=== PATIENT | male | born 1950 | race Caucasian/White ===

== ENCOUNTER → 2022-08-28 | Outpatient (CLI) | payer MEDICARE, OTHER ==
--- NOTE | 2022-08-28 14:00 | US ---
EXAMINATION TYPE: US carotid duplex BILAT DATE OF EXAM: 08/28/2022 COMPARISON: NONE CLINICAL INDICATION: Male, 72 years old with history of I67.82 CVA; stoke behind rt eye TECHNIQUE: Carotid duplex ultrasound examination. Indirect Doppler criteria was utilized. FINDINGS: EXAM MEASUREMENTS: RIGHT: Peak Systolic Velocity (PSV) cm/sec ----- Right CCA: 88.1 ----- Right ICA: 70.6 ----- Right ECA: 82.3 ICA/CCA ratio: 0.8 RIGHT: End Diastole cm/sec ----- Right CCA: 19.8 ----- Right ICA: 15.4 ----- Right ECA: 0 LEFT: Peak Systolic Velocity (PSV) cm/sec ----- Left CCA: 80.8 ----- Left ICA: 73.5 ----- Left ECA: 97.7 ICA/CCA ratio: 0.9 LEFT: End Diastole cm/sec ----- Left CCA: 19.8 ----- Left ICA: 18.3 ----- Left ECA: 16.3 VERTEBRALS (direction of flow): Right Vertebral: Antegrade Left Vertebral: Antegrade Rhythm: Normal MASSAGE THERAPY INSTRUCTOR NOTES: No significant stenosis seen IMPRESSION: Less than 50% stenosis of the bilateral carotid bifurcations. Criteria for Assigning % of Stenosis / Diameter reduction (Estimation based on the indirect measurements of the internal carotid artery velocities (ICA PSV). 1. Normal (no stenosis)=ICA PSV < 125 cm/s: ratio < 2.0: ICA EDV<40 cm/s. 2. Less than 50% stenosis=ICA PSV < 125 cm/s: ratio < 2.0: ICA EDV<40 cm/s. 3. 50 to 69% stenosis=ICA PSV of 125 to 230 cm/s: ration 2.0 ? 4.0: ICA EDV 40-100 cm/s. 4. Greater than 70% stenosis to near occlusion= ICA PSV > 230 cm/s: ratio > 4.0: ICA EDV > 100 cm/s. 5. Near occlusion= ICA PSV velocities may be low or undetectable: variable ratio and ICA EDV. 6. Total occlusion=unable to detect flow.
== END | disposition home or self-care (01) ==
LOC: RADUSWWP 10:33
DX: I67.82 Cerebral ischemia (principal); I65.23 Occlusion and stenosis of bilateral carotid arteries; Z86.73 Personal history of transient ischemic attack (TIA), and cerebral infarction without residual deficits
CPT/HCPCS: 93880

== ENCOUNTER → 2024-08-24 | Outpatient (CLI) | payer MEDICARE, OTHER ==
[2024-08-24 14:15] LABS: African American GFR (CKD) >90 (>60 ml/min/1.73 sqM); Blood Urea Nitrogen 19 mg/dL (9-20); Non-African American GFR(CKD) 78 (>60 ml/min/1.73 sqM)
--- NOTE | 2024-08-24 16:47 | CT ---
EXAMINATION TYPE: CT angio abd aorta w/Runoff DATE OF EXAM: 08/24/2024 4:26 PM COMPARISON: None. CLINICAL INDICATION: Male, 74 years old with history of I72.4 ANEURYSM; PHH, ANEURYSM IN LT POPLITEAL AND POSSIBLY ABDOMEN PER PT TECHNIQUE: CT angio abd aorta w/Runoff CT noncontrast abdomen pelvis and bilateral lower extremity followed by CT angiogram abdomen and pelv is and bilateral lower extremities. Multiple thin slice sub-millimeter images were obtained before and after administration of contrast. 3-D reconstructed images and maximum intensity projection images were obtained on a separate works tation. CT angio abd aorta w/Runoff CT Contrast: Contrast used:200 ML mL of Isovue 370 without and with IV Contrast, Oral contrast used: None CT DLP: 6097.1 mGycm, Automated exposure control for dose reduction was used. FINDINGS: CTA Abdomen and pelvis: The abdominal aorta does not demonstrate aneurysmal dilatation. Atherosclero tic plaquing is identified within the abdominal aorta. The origins of the superior mesenteric artery , renal arteries, inferior mesenteric artery, and celiac axis are patent. The iliac vessels are norm al in morphology there are 2 left renal arteries and one right CTA Lower extremities: Right: The common femoral and superficial femoral arteries are patent. The popliteal artery is patent . Popliteal artery is dilated up to 24 mm with mural thrombus and extends up to 9.5 cm in length.. An terior and posterior tibial arteries as well as the peroneal artery are patent. The posterior tibial artery crosses the ankle anterior tibial artery is poorly visualized. There is delayed perfusion of t he right lower extremity compared to the left. Left: The common femoral and superficial femoral arteries are patent. The popliteal artery is patent. The popliteal artery is dilated up to 36 mm with mural thrombus and extends approximately 16 cm in l ength. Anterior and posterior tibial arteries as well as the peroneal artery are patent. Anterior and posterior tibial arteries cross the ankle. Diffuse soft tissue edema throughout the lower extremities left greater than right. Mild degeneration changes in the knees with osteophyte formation and joint space. LOWER CHEST: No evidence of focal consolidation, pneumothorax or pleural effusion. Small hiatal herni a. LIVER: Diffusely hypoattenuating parenchyma. GALLBLADDER AND BILE DUCTS: Unremarkable. PANCREAS: Unremarkable. SPLEEN: Unremarkable. ADRENAL GLANDS: Unremarkable. KIDNEYS AND URETERS: Staghorn calculus on the left measuring up to at least 21 mm. No obstructing rig ht renal calculi measuring up to 5 mm. No hydronephrosis. Simple appearing 18 mm left renal cortical cyst. No follow-up recommended. PELVIS BLADDER: Multiple calcified stones present measuring up to 11 mm. REPRODUCTIVE: Prostate is enlarged in size measuring 5.9 cm in transverse dimension. Small to moderat e hydrocele. ABDOMEN & PELVIS STOMACH AND BOWEL: No evidence of bowel obstruction. Scattered colonic diverticulosis. The appendix i s normal. PERITONEUM: No evidence of pneumoperitoneum or free fluid. VASCULATURE: No evidence of aortic aneurysm. MUSCULOSKELETAL: No acute osseous abnormalities LYMPH NODES: No gross evidence for lymphadenopathy. SOFT TISSUE/ABDOMINAL WALL: Small right fat-containing ventral hernia. Fat-containing umbilical herni a. IMPRESSION: 1. 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 2. The right posterior tibial artery crosses the ankle. The anterior tibial artery is poorly visuali zed consider field laboratory operator angiography for further evaluation. 3. Delayed perfusion of the right leg compared to the left with better opacification second delayed imaging performed. 4. The left posterior tibial artery crosses the ankle. Anterior tibial artery is diminutive and poor ly visualized consider field laboratory operator angiography for further evaluation. 5. Moderate to severe atherosclerosis of the arterial vascular. 6. No abdominal aortic aneurysm visualized. 7. Bilateral renal calculi. 8. Multiple urinary bladder stones. 9. Prostatomegaly, correlate to PSA. 10. Small right fat-containing ventral hernia. 11. Colonic diverticulosis. 12. Small hiatal hernia. 13. Small to moderate hydrocele. [facility], , 08/24/2024 4:45 PM
== END | disposition home or self-care (01) ==
LOC: RADCTMAIN 13:18
PROVIDERS: ATTEND Surgery
DX: N43.3 Hydrocele, unspecified (principal); K44.9 Diaphragmatic hernia without obstruction or gangrene; K43.9 Ventral hernia without obstruction or gangrene; I72.4 Aneurysm of artery of lower extremity; N40.0 Benign prostatic hyperplasia without lower urinary tract symptoms; N21.0 Calculus in bladder; N20.0 Calculus of kidney; I70.90 Unspecified atherosclerosis
CPT/HCPCS: 82565; 84520; 75635; 36415; Q9967

== ENCOUNTER → 2024-11-10 | Outpatient (CLI) | payer MEDICARE, OTHER ==
[2024-11-10 11:00] LABS: Partial Thromboplastin Time 22.4 sec (22.0-30.0)
[2024-11-10 15:17] LABS: Basophils # (A) 0.03 X 10*3/uL (0.00-0.10); Basophils % (A) 0.6 %; Eosinophils # (A) 0.33 X 10*3/uL (0.04-0.35); Eosinophils % (A) 6.8 %; HCT 42.0 % (39.6-50.0); HGB 12.8 g/dL (13.0-17.0); Immature Grans, Automated 0.60 %; Lymphocytes # (A) 0.98 X 10*3/uL (0.90-5.00); Lymphocytes % (A) 20.3 %; MCH 28.3 pg (27.0-32.0); MCHC 30.5 g/dL (32.0-37.0); MCV 92.7 FL (80.0-97.0); Monocytes # (A) 0.49 X 10*3/uL (0.20-1.00); Monocytes % (A) 10.2 %; NRBC Per 100 WBC 0 X 10*3/uL (0.00-0.01); Neutrophils # (A) 2.96 X 10*3/uL (1.80-7.70); Neutrophils % (A) 61.5 %; Platelet Count 167 X 10*3/uL (140-440); RBC 4.53 X 10*6/uL (4.40-5.60); RDW 15.8 % (11.5-14.5); WBC 4.82 X 10*3/uL (4.50-10.00)
[2024-11-10 15:18] LABS: INR 1.0 (<1.2); Prothrombin Time 10.8 sec (10.0-12.5)
== END | disposition home or self-care (01) ==
LOC: LABPAT 09:38
PROVIDERS: ATTEND Surgery
DX: Z01.812 Encounter for preprocedural laboratory examination (principal)
CPT/HCPCS: 36415; 85025; 85610; 85730; 86850; 86900; 86901

== ENCOUNTER 2024-11-14 07:30 | Inpatient (IN) | payer MEDICARE, OTHER ==
[2024-11-14] MEDS: IV FLUID CONTINUATION 1,000 ML IV ONE ×2 (08:36→08:54)
[2024-11-14 08:42] LABS: Glucose,Whole Blood 134 mg/dL (70-110)
[2024-11-14] MEDS: ONDANSETRON 4 MG/2 ML VIAL IVP ONE (08:51)
[2024-11-14] MEDS: LACTATED RINGERS 1,000 ML IV SCH (08:51)
[2024-11-14] MEDS: DEXAMETHASONE SOD PHOSPHATE 4 MG/ML 1 ML VIAL IV ONE (08:51)
[2024-11-14] MEDS: LIDOCAINE 1% (10MG/ML) FOR IV START INTRADERMA PRN (08:58)
[2024-11-14] MEDS ORDERED: PROPOFOL 10 MG/ML 20 ML VIAL IV ONE (09:55)
[2024-11-14] MEDS ORDERED: ePHEDrine 50 MG/ML 1 ML VIAL ONE (09:55)
[2024-11-14] MEDS ORDERED: HEPARIN SODIUM,PORCINE 10,000 UNIT/ML 1 ML VIAL ONE (09:55)
[2024-11-14] MEDS ORDERED: GLYCOPYRROLATE 0.2 MG/ML 2 ML VIAL ONE (09:55)
[2024-11-14] MEDS ORDERED: SUCCINYLCHOLINE CHLORIDE 200 MG/10 ML VIAL IV ONE (09:55)
[2024-11-14] MEDS ORDERED: MIDAZOLAM 2 MG/2 ML VIAL ONE (09:55)
[2024-11-14] MEDS ORDERED: NEOSTIGMINE 1 MG/ML 10 ML VIAL ONE (09:55)
[2024-11-14] MEDS ORDERED: ROCURONIUM 10 MG/ML (5 ML VIAL) IV ONE (09:55)
[2024-11-14] MEDS ORDERED: HEPARIN SODIUM,PORCINE 5,000 UNIT/ML 1 ML VIAL ONE (09:55)
[2024-11-14] MEDS ORDERED: PHENYLEPHRINE 10 MG/ML VIAL ONE (09:55)
[2024-11-14] MEDS ORDERED: fentaNYL (PF) 50 MCG/ML 2 ML AMP ONE (09:55)
[2024-11-14] MEDS ORDERED: PROTAMINE SULFATE 10 MG/ML 5 ML VIAL ONE (09:55)
[2024-11-14] MEDS: THROMBIN (BOVINE) 5,000 UNIT VIAL TOPICAL ONE (10:36)
[2024-11-14] MEDS: ceFAZolin 4 GM in SODIUM CHLORIDE 0.9% 1,000 ML IRRIGATION ONE (10:37)
[2024-11-14] MEDS: HEPARIN SODIUM,PORCINE 10,000 UNIT in SODIUM CHLORIDE 0.9% 1,000 ML IRRIGATION ONE (10:37)
[2024-11-14] MEDS: LACTATED RINGERS 1,000 ML IV ONE ×3 (13:01→16:11)
[2024-11-14 14:44] LABS: Glucose,Whole Blood 155 mg/dL (70-110)
[2024-11-14 15:45] LABS: HCT 40.4 % (39.6-50.0); HGB 12.9 g/dL (13.0-17.0); MCH 28.9 pg (27.0-32.0); MCHC 31.9 g/dL (32.0-37.0); MCV 90.4 fL (80.0-97.0); Platelet Count 204 10*3/uL (140-440); RBC 4.47 10*6/uL (4.40-5.60); RDW 15.7 % (11.5-14.5); WBC 7.28 10*3/uL (4.50-10.00)
[2024-11-14 17:16] LABS: Glucose,Whole Blood 158 mg/dL (70-110)
[2024-11-14] MEDS: HYDROmorphone 0.5 MG/0.5 ML SYRINGE IVP PRN (17:22)
--- NOTE | 2024-11-14 17:48 | P.OP ---
Date of Procedure: 11/14/24 Preoperative Diagnosis: Left popliteal artery aneurysm Lower extremity pain secondary to compression of the aneurysm Chronic venous insufficiency Postoperative Diagnosis: Same Procedure(s) Performed: Left popliteal artery aneurysm resection Interposition popliteal to tibial peritoneal trunk bypass with reversed greater saphenous vein Hudson of greater saphenous vein on the left Anesthesia: LEORA Surgeon: Adan Lo Primer Waterproofing Machine Operator #1: Esther Camilo Estimated Blood Loss (ml): 500 Pathology: other (Popliteal aneurysm) Condition: stable Disposition: PACU Indications for Procedure: 74-year-old gentleman with history of bilateral popliteal artery aneurysms measuring greater than 3 cm who has been having significant discomfort in his left lower extremity as well as swelling due to compression symptoms small disease presents to the hospital for elective popliteal artery aneurysm resection and interposition bypass. Operative Findings: Large popliteal artery aneurysm with significantly enlarged distal SFA and popliteal artery Dense adhesions and scarring from popliteal artery aneurysm with significant adhesions to the popliteal veins Description of Procedure: After written and informed consent was obtained with the patient all risk, benefits and complications were described the patient was brought to the operative suite and laid in a prone position. The area of the left leg was pre pped and draped in usual sterile fashion after appropriate anesthetic was performed per the anesthesiologist. A timeout was performed all fashion antibiotics were administered prior to incision. A lazy S incision was then created at the posterior aspect of the left knee and dissection was carried down through the subcutaneous tissue through the fascia to the popliteal artery. A large popliteal artery aneurysm was then encountered with dense adhesions to the surrounding tissue including the femoral nerve and popliteal veins. Meticulous dissection was carried around the aneurysm both proximally and distally to an area distally that was normal size vessel at the tibioperoneal trunk. This area was then meticulously dissected in a circumferential manner and controlled with a vessel loop. Proximally there was large aneurysmal tissue with large distal SFA and popliteal artery that was greater than 12 mm in diameter. We extended the incision and attempted to get as proximal as possible but the vessel appeared to be the same size extending up to the SFA at the midportion and therefore it was determined to resect the aneurysmal tissue behind the knee and anastomosis to the larger distal SFA and proximal popliteal artery. The artery was dissected in circumferential manner and controlled with a vessel loop. There was a demarcation and change in size just after the aneurysm which was chosen to be bypass 2. Once controlled attention was placed to the greater saphenous vein. This was harvested in normal fashion of approximately 20 cm of vein. Once removed it was then reversed and the rest of the aneurysmal tissue was dissected free from the popliteal vein and surrounding veins surrounding the aneurysm. Multiple suture ligation of branches was noted and able to get the aneurysm out in its entirety. The proximal and distal aspect of the aneurysm was then ligated in normal fashion. The vein was spatulated in normal fashion and anastomosis was then performed after cleaning out the proximal artery and allowing for any thrombus to be removed. Anastomosis was then created with 6-0 Prolene suture in a running fashion. Once proximal anastomosis was completed control was released revealing good pulsatile blood flow through the bypass. The distal anastomosis was then performed after backbleeding was assessed which was brisk. 6-0 Prolene suture in running fashion was then performed at the distal anastomosis. Once completed control was released revealing good pulsatile blood flow through the bypass and distally. Doppler was also utilized and good multiphasic Doppler signal was noted distal to the bypass. The area was then copiously irrigated with antibiotic solution. Hemostasis was assured with Gelfoam and thrombin. Once hemostatic the incision was then closed in a multilayer fashion. The skin was then cleansed and dressings were placed. The incision for the greater saphenous vein was also closed in a multilayer fashion. The skin was also cleansed and dressings were placed. Patient tolerated procedure well and had a palpable DP pulse at the conclusion of the procedure as well as multiphasic AT signal with good capillary refill. Patient was then sent to PACU for recovery.
[2024-11-15] MEDS: ONDANSETRON 4 MG/2 ML VIAL IVP PRN (01:46)
[2024-11-15] MEDS: MORPHINE SULFATE 4 MG/ML SYRINGE IV PRN (01:52)
[2024-11-15] MEDS: HYDROcodone/APAP 5-325MG 1 EACH TAB PO PRN (05:58)
[2024-11-15] MEDS: glipiZIDE 5 MG TAB PO SCH (05:58)
[2024-11-15 06:09] LABS: Glucose,Whole Blood 136 mg/dL (70-110)
[2024-11-15] MEDS: CLOPIDOGREL 75 MG TAB PO SCH (07:51)
[2024-11-15] MEDS: PROPRANOLOL LA 60 MG CAP.SA.24H PO SCH (07:51)
[2024-11-15] MEDS: MAGNESIUM OXIDE 400 MG TAB PO SCH (07:51)
[2024-11-15] MEDS: ASPIRIN 81 MG PO SCH (07:51)
[2024-11-15] MEDS: PIOGLITAZONE 30 MG TAB PO SCH (07:51)
[2024-11-15] MEDS: DOCUSATE 100 MG CAP PO SCH (07:51)
[2024-11-15 11:28] LABS: Glucose,Whole Blood 141 mg/dL (70-110)
[2024-11-15 16:37] LABS: Glucose,Whole Blood 181 mg/dL (70-110)
[2024-11-15 19:50] LABS: Glucose,Whole Blood 156 mg/dL (70-110)
[2024-11-15] MEDS ORDERED: DEXTROSE 50% SYRINGE 50 ML IVP PRN ×2 (23:09)
[2024-11-16 00:42] VITALS: RESP 16
--- NOTE | 2024-11-16 05:32 | P.CONS ---
History of Present Illness - Reason for Consult Consult date: 11/15/24 Medical management, status post repair of popliteal aneurysm - History of Present Illness This is a pleasant 74-year-old male who was admitted under vascular surgery services status post elective popliteal artery aneurysm resection and interposition bypass. Patient follows with Dr. Baker in the outpatient setting with a past medical history of CVA, diabetes mellitus, hypertension, vascular disorder, morbid obesity, neuropathy, probable sleep apnea although has never been tested, chronic left hip pain, former smoker, occasional alcohol use and denies any other illicit drug use. Patient reports he did undergo presurgical clearance and is postop day 1, currently sitting up in the chair. Patient reports left leg discomfort and is currently sitting up in the chair. Patient reports has been up back and forth to the chair and feels weak. Patient does have diabetes [id number] and recommend initiating sliding scale with Accu-Cheks AC and at bedtime. Glipizide has been resumed as well. Other h ome medications will be reviewed and resumed as appropriate. Patient had CBC performed which shows a WBC of 7.28, hemoglobin 12.9, platelets 204. Recommend basic labs in the a.m. awaiting physical therapy evaluation. REVIEW OF SYSTEMS: CONSTITUTIONAL: No fever, no malaise, no fatigue. HEENT: No recent visual problems or hearing problems. Denied any sore throat. CARDIOVASCULAR: No chest pain, orthopnea, PND, no palpitations, no syncope. PULMONARY: No shortness of breath, no cough, no hemoptysis. GASTROINTESTINAL: No diarrhea, no nausea, no vomiting, no abdominal pain. NEUROLOGICAL: No headaches, no weakness, no numbness. HEMATOLOGICAL: Denies any bleeding or petechiae. GENITOURINARY: Denies any burning micturition, frequency, or urgency. MUSCULOSKELETAL/RHEUMATOLOGICAL: Reports significant left lower extremity pain and tenderness ENDOCRINE: Denies any polyuria or polydipsia. The rest of the 14-point review of systems is negative. PHYSICAL EXAMINATION: GENERAL: The patient is alert and oriented x3, not in any acute distress. Currently sitting up in the chair, well developed, elderly appearing, morbidly obese HEENT: Pupils are round and equally reacting to light. EOMI. No scleral icterus. No conjunctival pallor. Normocephalic, atraumatic. No pharyngeal erythema. No thyromegaly. CARDIOVASCULAR: S1 and S2 muffled PULMONARY: Diminished breath sounds bilaterally otherwise chest is clear to auscultation, no wheezing or crackles. ABDOMEN: Soft, morbidly obese, nontender, nondistended, normoactive bowel sounds. No palpable organomegaly. MUSCULOSKELETAL: No joint swelling or deformity. EXTREMITIES: No cyanosis, clubbing, or pedal edema. Bilateral lower extremity swelling, slightly more on the left NEUROLOGICAL: Gross neurological examination did not reveal any focal deficits. Diffusely weak SKIN: No rashes. Assessment: Status post left popliteal artery aneurysm resection and interposition bypass, postop day 1 History of bilateral popliteal aneurysms History of CVA Diabetes mellitus, type II, [id number] History of hypertension History of vascular disorder Morbid obesity History of neuropathy Probable sleep apnea, recommend outpatient testing GI prophylaxis DVT prophylaxis Full code Plan: Patient was admitted under vascular surgery status post left popliteal artery aneurysm resection with interposition bypass Home medications reviewed and resumed as appropriate Recommend Accu-Cheks ACHS and sliding scale and will adjust accordingly. Home medications including glipizide have been resumed Encouraged increase activity as tolerated with restrictions per vascular surgery Awaiting PT/OT therapy evaluation. Patient reports he has support at the home and plans on returning home possibly on Patient did have indwelling Buckley catheter removed this morning awaiting to void, recommend following protocol as needed if patient is having retention Thank you kindly for this consultation. We will continue to follow with vascu lar surgery during hospitalization The impression and plan of care has been dictated by Dona Richey, Nurse Practitioner as directed. Dr. Andrea MD I have performed a history and examination and MDM of this patient, discussed the same with the dictator, and agree with the dictator's assessment and plan as written ,documented as a scribe. Based on total visit time, I have performed more than 50% of the visit. Past Medical History Past Medical History: CVA/TIA, Diabetes Mellitus, Hypertension, Vascular Disorder Additional Past Medical History / Comment(s): swelling lower left leg, elsy popliteal aneurysms behind knees, can't walk far without leg pain, neuropathy, probable sleep apnea but has never been tested, stroke that affected right eye 2 years-now resolved, has left hip pain-hasn't been evaluated yet, takes propranolol for headaches, fell down stairs the other day-right leg bruised upp er thigh History of Any Multi-Drug Resistant Organisms: None Reported Past Surgical History: Orthopedic Surgery, Tonsillectomy Additional Past Surgical History / Comment(s): left elbow ORIF Past Anesthesia/Blood Transfusion Reactions: No Reported Reaction Additional Past Anesthesia/Blood Transfusion Reaction / Comm: woke up during removal of hardware during elbow surg. Smoking Status: Former smoker - Past Family History Mother Family Medical History: No Reported History Medications and Allergies Home Medications Medication Instructions Recorded Confirmed Type Cinnamon Bark [Cinnamon] 6,000 mg PO BID 11/09/24 11/14/24 History Magnesium 400 mg PO DAILY 11/09/24 11/14/24 History Pioglitazone [Actos] 30 mg PO DAILY 11/09/24 11/14/24 History Propranolol HCl [Inderal] 60 mg PO DAILY 11/09/24 11/14/24 History Semaglutide [Ozempic] 0.25 mg SQ WE 11/09/24 11/14/24 History Sugar Defender 2 dropper PO DAILY 11/09/24 11/14/24 History Turmeric Root Extract [Turmeric 500 mg PO DAILY 11/09/24 11/14/24 History Curcumin] glipiZIDE [Glucotrol] 20 mg PO AC-BID 11/09/24 11/14/24 History lisinopriL [Zestril] 20 mg PO DAILY 11/09/24 11/14/24 History Allergies Allergy/AdvReac Type Severity Reaction Status Date / Time Khalvcn-MET-YiC Reductase AdvReac muscle Verified 11/14/24 08:26 Inhibitor cramps Physical Exam Vitals: Vital Signs Temp Pulse Resp BP Pulse Ox 11/15/24 07:36 98.3 F 70 20 123/68 93 L 11/15/24 03:35 97.6 F 62 18 107/71 95 11/15/24 00:55 97.5 F L 61 16 105/67 98 11/14/24 20:00 16 11/14/24 19:38 53 L 16 147/86 98 11/14/24 18:30 63 14 144/79 99 11/14/24 18:15 52 L 14 138/71 9 L 11/14/24 18:00 55 L 14 128/64 91 L 11/14/24 17:39 65 14 147/83 96 11/14/24 17:24 75 14 141/83 96 11/14/24 17:09 96.5 F L 14 136/79 96 Intake and Output 11/14/24 11/15/24 11/15/24 22:59 06:59 14:59 Intake Total 300 10 Output Total 1450 850 Balance -1150 -840 Intake: IV 300 10 Invasive Line 1 10 Output: Urine 950 850 Estimated Blood Loss 500 Other: Voiding Method Indwelling Catheter Indwelling Catheter Urinal # Voids 1 Weight 151.5 kg Results CBC & Chem 7: 11/14/24 15:02 Labs: Abnormal Lab Results - Last 24 Hours (Table) 11/14/24 11/14/24 11/14/24 Range/Units 14:42 15:02 17:14 Hgb 12.9 L (13.0-17.0) g/dL MCHC 31.9 L (32.0-37.0) g/dL POC Glucose (mg/dL) 155 H 158 H (70-110) mg/dL 11/15/24 Range/Units 06:07 Hgb (13.0-17.0) g/dL MCHC (32.0-37.0) g/dL POC Glucose (mg/dL) 136 H (70-110) mg/dL
[2024-11-16 05:48] LABS: Glucose,Whole Blood 143 mg/dL (70-110)
[2024-11-16] MEDS: INSULIN LISPRO (HumaLOG) 100 UNIT/ML 10 mL VL SQ SCH (06:54)
--- NOTE | 2024-11-16 07:41 | P.PN ---
Subjective Progress Note Date: 11/15/24 (Late entry patient seen 11/15/2024 at approximately 7:30 AM) Principal diagnosis: Left popliteal aneurysm repair Patient is seen and examined as a follow-up. He is postop day #1 for left popliteal artery aneurysm resection, interposition popliteal to tibioperoneal trunk bypass with reverse greater saphenous vein and harvest of greater saphenous vein on the left. Patient is stating that he has some pain more so near his Achilles and foot. Otherwise pain has been well-controlled. He has full range of motion. Tariq wrap and dressing in place. Buckley catheter was removed this morning. Patient has not been up or ambulating. He is tolerating his diet. Objective - Vital Signs Vital signs: Vital Signs Temp 98.2 F 11/16/24 04:00 Pulse 69 11/16/24 04:00 Resp 16 11/16/24 04:00 BP 109/58 11/16/24 04:00 Pulse Ox 92 L 11/16/24 04:00 FiO2 Intake & Output 11/15/24 11/16/24 11/16/24 18:59 06:59 18:59 Intake Total 594 Output Total 200 1325 Balance 394 -1325 Weight 151 kg Intake: Oral 594 Output: Urine 200 1325 Other: Voiding Method Urinal Urinal - Exam General appearance: The patient is alert, oriented, appears in no acute distress. HET: Head is normocephalic and atraumatic. Pupils are equal and reactive. Neck: Supple. Heart: Regular. Lungs: Equal expansion, normal respiratory effort. Abdomen: Soft, nontender, nondistended. Extremities: Normal skin color and turgor. Left lower extremity swelling, dressing clean dry and intact. Left DP and PT Doppler signal present. Right PT Doppler signal present. Neurological: No focal deficits. Strength and sensation are grossly intact. - Labs CBC & Chem 7: 11/14/24 15:02 Labs: Abnormal Lab Results - Last 24 Hours (Table) 11/15/24 11/15/24 11/15/24 Range/Units 11:26 16:36 19:49 POC Glucose (mg/dL) 141 H 181 H 156 H (70-110) mg/dL 11/16/24 Range/Units 05:46 POC Glucose (mg/dL) 143 H (70-110) mg/dL Assessment and Plan Assessment: 1. Postop day #1 left popliteal artery aneurysm resection, interposition popliteal to tibial peritoneal trunk bypass with reversed great saphenous vein, harvest of greater saphenous vein on the left 2. Left popliteal artery aneurysm, lower extremity pain secondary to compression of the aneurysm 3. Chronic venous insufficiency Plan: 1. Consult to PT/OT 2. Encourage ambulation 3. Anticipate discharge today or tomorrow 4. Medical management per primary medical team on consultation The impression and plan of care has been dictated as directed. Dr. Lo I performed a history and examination of this patient, discussed the same with the dictator. I agree with the dictator's note ,documented as a scribe. Any additional findings or plans will be noted.
[2024-11-16 07:47] LABS: Basophils # (A) 0.04 10*3/uL (0.00-0.10); Basophils % (A) 0.6 %; Eosinophils # (A) 0.21 10*3/uL (0.04-0.35); Eosinophils % (A) 3.3 %; HCT 32.4 % (39.6-50.0); HGB 10.3 g/dL (13.0-17.0); Lymphocytes # (A) 1.03 10*3/uL (0.90-5.00); Lymphocytes % (A) 16.2 %; MCH 29.3 pg (27.0-32.0); MCHC 31.8 g/dL (32.0-37.0); MCV 92.3 fL (80.0-97.0); Monocytes # (A) 0.82 10*3/uL (0.20-1.00); Monocytes % (A) 12.9 %; Neutrophils # (A) 4.23 10*3/uL (1.80-7.70); Neutrophils % (A) 66.5 %; Platelet Count 126 10*3/uL (140-440); RBC 3.51 10*6/uL (4.40-5.60); RDW 15.8 % (11.5-14.5); WBC 6.36 10*3/uL (4.50-10.00)
[2024-11-16 08:00] LABS: African American GFR (CKD) 74 (>60 ml/min/1.73 sqM); Anion Gap 9 mmol/L; Blood Urea Nitrogen 29 mg/dL (9-20); Calcium 8.5 mg/dL (8.4-10.2); Carbon Dioxide 25 mmol/L (22-30); Chloride 99 mmol/L (98-107); Glucose 133 mg/dL (74-99); Non-African American GFR(CKD) 64 (>60 ml/min/1.73 sqM); Potassium 4.1 mmol/L (3.5-5.1); Sodium 133 mmol/L (137-145)
[2024-11-16 08:19] VITALS: BP 100/64; PULSE 63; TEMP 97.7
--- NOTE | 2024-11-16 11:43 | P.DS ---
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 Patient is postop day #2 for left popliteal artery aneurysm resection, interposition popliteal to tibial peritoneal trunk bypass with free reverse greater saphenous vein and harvest of greater saphenous vein on the left. He has been seen and evaluated by physical therapy and Occupational Therapy with recommendations for home with home health care. Patient has been up and ambulating around his room using a rolling walker. He does have left lower extremity pain and discomfort at surgical incision site. He is having some serosanguineous drainage from his incision site. Still has left lower extremity swelling but swelling has improved. Patient has been afebrile. Vital signs have been stable. Hemoglobin 10.3 platelet count 126,000. Exam General appearance: The patient is alert, oriented, appears in no acute distress. HET: Head is normocephalic and atraumatic. Pupils are equal and reactive. Neck: Supple. Heart: Regular. Lungs: Equal expansion, normal respiratory effort. Abdomen: Soft, nontender, nondistended. Extremities: Left lower extremity edema. Incision on posterior aspect of left leg along popliteal region well-approximated with seeping of serosanguineous fluid. Increased swelling at popliteal region. Full range of motion. Good capillary refill. PT and DP signal obtained, monophasic. Neurological: No focal deficits. Strength and sensation are grossly intact. Assessment 1. Postop day #2 left popliteal artery aneurysm resection, interposition popliteal to tibial peritoneal trunk bypass with reversed great saphenous vein, harvest of greater saphenous vein on the left 2. Left popliteal artery aneurysm, lower extremity pain secondary to compression of the aneurysm 3. Chronic venous insufficiency Plan: Dressing changed with incision well-approximated with swelling surrounding, noted serosanguineous drainage. Nonadherent dressing with ABD pad and Kerlix applied. Tariq wrap reapplied per patient's request for comfort. Patient started on aspirin and Plavix. Plan is for discharge home. Discharge instructions reviewed with patient who verbalized understanding. Will plan for outpatient repeat CBC on Thursday. Patient will be discharged home today with home health care. The impression and plan of care has been dictated as directed. Dr.Cuppari Panchal performed a history and examination of this patient, discussed the same with the dictator. I agree with the dictator's note ,documented as a scribe. Any additional findings or plans will be noted. Procedures: Left popliteal artery aneurysm resection Interposition popliteal to tibial peritoneal trunk bypass with reversed greater saphenous vein [place] of greater saphenous vein on the left Patient Condition at Discharge: Stable Plan - Discharge Summary Discharge Rx Participant: No New Discharge Prescriptions: New Aspirin 81 mg PO DAILY tab Docusate [Colace] 100 mg PO DAILY cap HYDROcodone/APAP 5-325MG [[place] 5-325] 1 each PO Q4HR PRN 3 Days #18 tab PRN Reason: Pain Scale 8 To 10 Clopidogrel [Plavix] 75 mg PO DAILY #30 tab Continue Pioglitazone [Actos] 30 mg PO DAILY Sugar Defender 2 dropper PO DAILY Magnesium 400 mg PO DAILY lisinopriL [Zestril] 20 mg PO DAILY glipiZIDE [Glucotrol] 20 mg PO AC-BID Turmeric Root Extract [Turmeric Curcumin] 500 mg PO DAILY Semaglutide [Ozempic] 0.25 mg SQ WE Propranolol HCl [Inderal] 60 mg PO DAILY Cinnamon Bark [Cinnamon] 6,000 mg PO BID Discharge Medication List Cinnamon Bark [Cinnamon] 6,000 mg PO BID 11/09/24 [History] Magnesium 400 mg PO DAILY 11/09/24 [History] Pioglitazone [Actos] 30 mg PO DAILY 11/09/24 [History] Propranolol HCl [Inderal] 60 mg PO DAILY 11/09/24 [History] Semaglutide [Ozempic] 0.25 mg SQ WE 11/09/24 [History] Sugar Defender 2 dropper PO DAILY 11/09/24 [History] Turmeric Root Extract [Turmeric Curcumin] 500 mg PO DAILY 11/09/24 [History] glipiZIDE [Glucotrol] 20 mg PO AC-BID 11/09/24 [History] lisinopriL [Zestril] 20 mg PO DAILY 11/09/24 [History] Aspirin 81 mg PO DAILY tab 11/16/24 [Rx] Clopidogrel [Plavix] 75 mg PO DAILY #30 tab 11/16/24 [Rx] Docusate [Colace] 100 mg PO DAILY cap 11/16/24 [Rx] HYDROcodone/APAP 5-325MG [[place] 5-325] 1 each PO Q4HR PRN 3 Days #18 tab 11/16/24 [Rx] Follow up Appointment(s)/Referral(s): Adan Lo DO [STAFF PHYSICIAN] - 11/29/24 10:30 am Patient Instructions/Handouts: Clopidogrel (By mouth) Activity/Diet/Wound Care/Special Instructions: No driving until cleared by surgeon Avoid heavy lifting greater than 10 lbs , pushing, pulling, straining,and limit flights of stairs for 2 weeks May shower but no tub baths or soaking until cleared by surgeon signs of infection ie: fever, rash, drainage from puncture site, swelling contact doctor or return to ER immediately. May keep Tariq wrap on left lower extremity to improve swelling. May apply 4 x 4, ABD dressing to left lower extremity incision with serosanguineous drainage. Heavy bleeding from surgical site apply firm direct pressure and return to ER. Do not attempt to drive self. low sodium/low fat diet Discharge/Stand Alone Forms: Who Do I Call? Discharge Disposition: HOME WITH HOME HEALTH SERVICES
== END 2024-11-16 12:46 | disposition home health service (06) | DRG 253 ==
LOC: 2ORMAIN 07:53 → 3SCARD 18:05
PROVIDERS: ADMIT Surgery; ATTEND Surgery
PROC: 04BN0ZZ Excision of Left Popliteal Artery, Open Approach (ICD-10-PCS; 2024-11-14)
PROC: 041 Lower Arteries, Bypass (ICD-10-PCS; principal; 2024-11-14 09:55)
DX: I72.4 Aneurysm of artery of lower extremity (principal); Z68.42 Body mass index [BMI] 45.0-49.9, adult; E11.42 Type 2 diabetes mellitus with diabetic polyneuropathy; G89.29 Other chronic pain; M25.552 Pain in left hip; I10 Essential (primary) hypertension; E66.01 Morbid (severe) obesity due to excess calories; I87.2 Venous insufficiency (chronic) (peripheral); K66.0 Peritoneal adhesions (postprocedural) (postinfection); Z79.84 Long term (current) use of oral hypoglycemic drugs; Z79.899 Other long term (current) drug therapy; Z86.73 Personal history of transient ischemic attack (TIA), and cerebral infarction without residual deficits; Z87.891 Personal history of nicotine dependence; Z88.8 Allergy status to other drugs, medicaments and biological substances
CPT/HCPCS: 80048; 83036; 85025; 85027; 88304